=== PATIENT | female | born 1940 | race Caucasian/White ===

== ENCOUNTER 2018-07-10 10:35 | Emergency (ER) | payer OTHER ==
[2018-07-10] MEDS ORDERED: LIDOCAINE VISCOUS 2% SOLN 15 ML UDC ONE (12:00)
--- NOTE | 2018-07-10 12:14 | ER ---
Nurse's Notes [facility] Name: Liz Padilla Age: 78 yrs Sex: Female : 1940 Arrival Date: 07/10/2018 Time: 10:40 Bed 10 Private MD: Jason Fields Diagnosis: Laceration without foreign body of scalp Presentation: 07/10 10:55 Presenting complaint: Patient states: i just had cataract surgery, supposed to close my hj eyes on the shower, i hit my head underneath he shower and had a cut on it; happened around 8:30 am today; denies LOC; reports taking aspirin;. Transition of care: patient was not received from another setting of care. Complicating Factors: There are no complicating factors for this patient. Onset of symptoms was July 10, 2018. Risk Assessment: Do you want to hurt yourself or someone else? Patient reports no desire to harm self or others. Initial Sepsis Screen: Does the patient meet any 2 criteria? No. Patient's initial sepsis screen is negative. Does the patient have a suspected source of infection? No. Patient's initial sepsis screen is negative. Care prior to arrival: None. 10:55 Method Of Arrival: Ambulatory hj 10:55 Acuity: NOE 4 hj Triage Assessment: 10:58 General: Appears in no apparent distress. uncomfortable, Behavior is calm, cooperative, hj appropriate for age. Pain: Complains of pain in head Pain currently is 1 out of 10 on a pain scale. Injury Description: Laceration. 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 - Social history:: Smoking status: Patient/guardian denies using tobacco, Patient/guardian denies using alcohol. - Ebola Screening: : Patient negative for fever greater than or equal to 101.5 degrees Fahrenheit, and additional compatible Ebola Virus Disease symptoms Patient denies exposure to infectious person Patient denies travel to an Ebola-affected area in the 21 days before illness onset. Screenin:58 Abuse screen: Denies threats or abuse. Denies injuries from another. Nutritional hj screening: No deficits noted. Tuberculosis screening: No symptoms or risk factors identified. Fall Risk None identified. Assessment: 10:58 Injury Description: Laceration is clean, 0.5 to 2.5 cm long. hj 10:58 Musculoskeletal: No signs and/or symptoms reported regarding the musculoskeletal system.hj 11:40 General: Appears in no apparent distress. comfortable, Behavior is calm, cooperative, ss Denies fever, feeling ill, fatigue, chills. Pain: Complains of pain in top of head Pain currently is 1 out of 10 on a pain scale. Quality of pain is described as burning, tender, Is continuous. Neuro: Level of Consciousness is awake, alert, obeys commands, Oriented to person, place, time, situation. Respiratory: Airway is patent Respiratory effort is even, unlabored, Respiratory pattern is regular, symmetrical. EENT: Oral mucosa is moist. Throat is clear. Derm: Skin is intact, is healthy with good turgor, Skin is dry, Skin is pink, warm \T\ dry. normal. Injury Description: Laceration sustained to top of head is clean, 0.5 to 2.5 cm long, was sustained 30-60 minutes ago. is bleeding no active bleeding noted. Vital Signs: 10:59 BP 152 / 86; Pulse 72; Resp 18; Temp 98.0(O); Pulse Ox 100% on R/A; Weight 68.04 kg; hj Height 5 ft. 2 in. (157.48 cm); Pain 1/10; 10:59 Body Mass Index 27.44 (68.04 kg, 157.48 cm) ED Course: 10:40 Patient arrived in ED. mr 10:40 Jason Fields MD is Private Physician. mr 10:57 Triage completed. hj 10:58 Arm band placed on right wrist. hj 10:59 Patient has correct armband on for positive identification. Bed in low position. Call light in reach. Side rails up X 1. 11:38 [facility]C [facility] kb 11:38 Jerry Vera MD is Attending Physician. kb 11:53 Smirch, Charis, RN is Primary Nurse. ss 12:38 Assist provider with laceration repair that was 2.5 cm. or less using shlomo. Set up ss tray. Performed by Kaylah JOHNSON Dressed with Neosporin, Patient tolerated well. Patient did not have IV access during this emergency room visit. Administered Medications: 11:53 Drug: Viscous Lidocaine Liquid (4 %) 5 ml Route: Mucous Membrane; ss Outcome: 12:13 Discharge ordered by . kb 12:38 Discharged to home ambulatory. ss 12:38 Condition: good 12:38 Discharge instructions given to patient, Instructed on discharge instructions, follow up and referral plans. medication usage, wound care, Demonstrated understanding of instructions, follow-up care, wound care. 12:42 Patient left the ED. Signatures: Kaylah Martinez FNP-C FNP-Dexter Dayan Aleman Charis Ramirez, RN RN Lexa Manrique RN RN hj Corrections: (The following items were deleted from the chart) 11:02 10:59 Pulse 72bpm; Resp 18bpm; Pulse Ox 100% RA; Temp 98.0F Oral; 68.04 kg; Height 5 hj ft. 2 in.; BMI: 27.4; Pain 1/10; hj 11:03 10:59 Pulse 72bpm; Resp 18bpm; Pulse Ox 100% RA; Temp 98.0F Oral; 68.04 kg; Height 5 hj ft. 2 in.; BMI: 27.4; Pain 1/10; hj
--- NOTE | 2018-07-10 12:14 | EDPHYS ---
Physician Documentation [facility] Name: Liz Padilla Age: 78 yrs Sex: Female : 1940 Arrival Date: 07/10/2018 Time: 10:40 Bed 10 Private MD: Jason Fields ED Physician Jerry Vera HPI: 07/10 12:12 This 78 yrs old Female presents to ER via Ambulatory with complaints of kb Laceration To Head. 12:12 The patient has a laceration related to: hit head on shower handle occurred at home, kb and there are no complicating factors. The injury was accidental. The laceration(s) is(are) located on the top of head. Onset: The symptoms/episode began/occurred just prior to arrival. Associated signs and symptoms: The patient has no apparent associated signs or symptoms. The patient has not experienced similar symptoms in the past. The patient has not recently seen a physician. 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 - Social history:: Smoking status: Patient/guardian denies using tobacco, Patient/guardian denies using alcohol. - Ebola Screening: : Patient negative for fever greater than or equal to 101.5 degrees Fahrenheit, and additional compatible Ebola Virus Disease symptoms Patient denies exposure to infectious person Patient denies travel to an Ebola-affected area in the 21 days before illness onset. ROS: 12:11 Constitutional: Negative for fever, chills, and weight loss, Cardiovascular: Negative kb for chest pain, palpitations, and edema, Respiratory: Negative for shortness of breath, cough, wheezing, and pleuritic chest pain, Abdomen/GI: Negative for abdominal pain, nausea, vomiting, diarrhea, and constipation, MS/Extremity: Negative for injury and deformity, Neuro: Negative for headache, weakness, numbness, tingling, and seizure. 12:11 Skin: Positive for laceration(s), of the top of head. Exam: 12:11 Constitutional: This is a well developed, well nourished patient who is awake, alert, kb and in no acute distress. Head/Face: Normocephalic, atraumatic. Chest/axilla: Normal chest wall appearance and motion. Nontender with no deformity. No lesions are appreciated. Cardiovascular: Regular rate and rhythm with a normal S1 and S2. No gallops, murmurs, or rubs. Normal PMI, no JVD. No pulse deficits. Respiratory: Lungs have equal breath sounds bilaterally, clear to auscultation and percussion. No rales, rhonchi or wheezes noted. No increased work of breathing, no retractions or nasal flaring. Abdomen/GI: Soft, non-tender, with normal bowel sounds. No distension or tympany. No guarding or rebound. No evidence of tenderness throughout. MS/ Extremity: Pulses equal, no cyanosis. Neurovascular intact. Full, normal range of motion. Neuro: Awake and alert, GCS 15, oriented to person, place, time, and situation. Cranial nerves II-XII grossly intact. Motor strength 5/5 in all extremities. Sensory grossly intact. Cerebellar exam normal. Normal gait. 12:11 Skin: injury, laceration(s), the wound is approximately 2.5 cm(s), of the top of head, that can be described as clean, no foreign body, linear, without bleeding. Vital Signs: 10:59 BP 152 / 86; Pulse 72; Resp 18; Temp 98.0(O); Pulse Ox 100% on R/A; Weight 68.04 kg; hj Height 5 ft. 2 in. (157.48 cm); Pain 1/10; 10:59 Body Mass Index 27.44 (68.04 kg, 157.48 cm) hj Laceration: 12:11 Wound Repair of 2.5cm ( 1.0in ) subcutaneous laceration to top of head. Linear shaped.. kb Distal neuro/vascular/tendon intact. Anesthesia: Topical anesthetic administered with 1% lidocaine. Wound prep: Moderate cleansing with hibiclenz by nurse, Wound irrigation with saline by nurse. Skin closed with 3 Riccardo using staple gun. Dressed with Neosporin. Patient tolerated well. MDM: 11:38 Patient medically screened. kb 12:12 Data reviewed: vital signs, nurses notes. Data interpreted: Pulse oximetry: on room air kb is 100 %. Interpretation: normal. Counseling: I had a detailed discussion with the patient and/or guardian regarding: the historical points, exam findings, and any diagnostic results supporting the discharge/admit diagnosis, the need for outpatient follow up, a family practitioner, to return to the emergency department if symptoms worsen or persist or if there are any questions or concerns that arise at home. 07/10 11:48 Order name: Dressing - Wound; Complete Time: 12:07 kb 07/10 11:48 Order name: Gloves, Sterile; Complete Time: 12:07 kb 07/10 11:48 Order name: Setup Suture Tray; Complete Time: 12:07 kb Administered Medications: 11:53 Drug: Viscous Lidocaine Liquid (4 %) 5 ml Route: Mucous Membrane; ss Disposition: 07/11 10:19 Co-signature as Attending Physician, Jerry Vera MD I agree with the assessment and kylah plan of care. Disposition: 07/10/18 12:13 Discharged to Home. Impression: Laceration without foreign body of scalp. - Condition is Stable. - Discharge Instructions: Laceration Care, Adult, [id number], Head Injury, Adult, [id number]. - Medication Reconciliation Form, Thank You Letter, Antibiotic Education, Prescription Opioid Use form. - Follow up: Emergency Department; When: As needed; Reason: Worsening of condition. Follow up: Private Physician; When: 2 - 3 days; Reason: Recheck today's complaints, Continuance of care, Re-evaluation by your physician. Signatures: Kaylah Martinez, TIANNA-C TIANNA-Jerry Loya MD MD cha Smirch, Shelby, RN RN ss Joaquin, Henry, RN RN Corrections: (The following items were deleted from the chart) 07/10 12:42 12:13 07/10/2018 12:13 Discharged to Home. Impression: Laceration without foreign body ss of scalp. Condition is Stable. Forms are Medication Reconciliation Form, Thank You Letter, Antibiotic Education, Prescription Opioid Use. Follow up: Emergency Department; When: As needed; Reason: Worsening of condition. Follow up: Private Physician; When: 2 - 3 days; Reason: Recheck today's complaints, Continuance of care, Re-evaluation by your physician. kb
== END 2018-07-10 12:42 | disposition home or self-care (01) ==
LOC: ER 10:35
PROC: 0JQ00ZZ Repair Scalp Subcutaneous Tissue and Fascia, Open Approach (ICD-10-PCS; principal; 2018-07-10)
DX: S01.01XA Laceration without foreign body of scalp, initial encounter (principal); I10 Essential (primary) hypertension; K21.9 Gastro-esophageal reflux disease without esophagitis; W26.8XXA Contact with other sharp object(s), not elsewhere classified, initial encounter; Y93.89 Activity, other specified; Y92.002 Bathroom of unspecified non-institutional (private) residence as the place of occurrence of the external cause; Z88.6 Allergy status to analgesic agent; Z91.09 Other allergy status, other than to drugs and biological substances
CPT/HCPCS: 99283

== ENCOUNTER 2022-05-19 18:58 | Emergency (ER) | payer OTHER ==
--- NOTE | 2022-05-19 20:25 | EDPHYS ---
Physician Documentation [facility] Name: Liz Padilla Age: 82 yrs Sex: Female : 1940 Arrival Date: 05/19/2022 Time: 19:01 Bed 2 Private MD: Jason Fields ED Physician Jimi Bhatt HPI: 05/19 20:15 This 82 yrs old Female presents to ER via Ambulatory with complaints of Insect Bite. cp 20:15 The patient or guardian reports possible insect bite. The complaints affect the dorsal cp aspect of distal phalanx of right middle finger. Context: The problem was sustained at home, resulted from possible insect bite. Onset: The symptoms/episode began/occurred noticed about 1730 today. Associated signs and symptoms: The patient has no apparent associated signs or symptoms. Historical: - Allergies: 20:08 CEFALEXIN; kd3 20:08 Codeine; kd3 20:08 iodine contrast; kd3 20:08 Vicodin; kd3 - Home Meds: 20:08 losartan 25 mg Oral tab 1 tab once daily [Active]; pantoprazole 40 mg Oral TbEC 1 tab kd3 once daily [Active]; Furosemide Oral [Active]; - PMHx: 20:08 GERD; Hypertension; kd3 - Immunization history:: Adult Immunizations up to date. - Social history:: Smoking status: Patient denies any tobacco usage or history of. ROS: 20:16 Constitutional: Negative for body aches, chills, fever, poor PO intake. cp 20:16 Respiratory: Negative for cough, shortness of breath, wheezing. 20:16 Abdomen/GI: Negative for abdominal pain, nausea, vomiting, and diarrhea. 20:16 Skin: Positive for of the dorsal aspect of distal phalanx of right middle finger, possible insect bite. Exam: 20:17 Constitutional: The patient appears in no acute distress, alert, awake, comfortable, cp non-toxic, well developed, well nourished. 20:17 Skin: mild area of redness and swelling noted dorsal side distal phalanx right middle finger w/o open wound, no drainage expressed, skin cool to touch. Vital Signs: 20:06 BP 196 / 89; Pulse 68; Resp 19; Temp 98(O); Pulse Ox 95% on R/A; Weight 70.31 kg; kd3 Height 5 ft. 2 in. (157.48 cm); Pain 2/10; 20:17 BP 164 / 81; Pulse 65; Resp 18 S; Pulse Ox 99% on R/A; as6 20:25 BP 159 / 80; Pulse 64; Resp 18 S; Pulse Ox 97% on R/A; as6 20:06 Body Mass Index 28.35 (70.31 kg, 157.48 cm) kd3 MDM: 20:03 Patient medically screened. cp 20:25 Data reviewed: vital signs, nurses notes. cp 20:25 Differential diagnosis: closed fracture, contusion, cellulitis, insect bite, abscess. cp Test considered but Not performed: X-ray: hand. Care significantly affected by the following chronic conditions: Hypertension. Counseling: I had a detailed discussion with the patient and/or guardian regarding: the historical points, exam findings, and any diagnostic results supporting the discharge/admit diagnosis, to return to the emergency department if symptoms worsen or persist or if there are any questions or concerns that arise at home. 05/19 20:12 Order name: Blood Pressure Recheck; Complete Time: 20:20 cp Administered Medications: No medications were administered Disposition Summary: 05/19/22 20:25 Discharge Ordered Location: Home cp Problem: new cp Symptoms: are unchanged cp Condition: Stable cp Diagnosis - Encounter for examination and observation for unspecified reason - possible insect cp bite right finger Followup: cp - With: Private Physician - When: 48 Hours - Reason: Worsening of condition Discharge Instructions: - Discharge Summary Sheet cp - Insect Bite, Adult cp Forms: - Medication Reconciliation Form cp - Thank You Letter cp - Antibiotic Education cp - Prescription Opioid Use cp Signatures: Jerry Zimmer PA PA cp Cindy Blue, RN RN kd3 Corrections: (The following items were deleted from the chart) 20:20 20:17 Skin: mild area of redness and swelling noted dorsal side distal phalanx right cp middle finger w/o open wound, no drainage expressed. cp
--- NOTE | 2022-05-19 20:25 | ER ---
Nurse's Notes [facility] Name: Liz Padilla Age: 82 yrs Sex: Female : 1940 Arrival Date: 05/19/2022 Time: 19:01 Bed 2 Private MD: Jason Fields Diagnosis: Encounter for examination and observation for unspecified reason-possible insect bite right finger Presentation: 05/19 20:06 Chief complaint: Patient states: I feel a little silly but i have a little red miranda on kd3 my right middle finger. I guess its a bite but im not sure. It is a bit uncomfortable so i thought i would come get it checked. Coronavirus screen: Vaccine status: Patient reports receiving the 2nd dose of the covid vaccine. pfizer Patient reports receiving the 1st dose of the Covid vaccine. moderna. Ebola Screen: No symptoms or risks identified at this time. Initial Sepsis Screen: Does the patient meet any 2 criteria? No. Patient's initial sepsis screen is negative. Does the patient have a suspected source of infection? No. Patient's initial sepsis screen is negative. Risk Assessment: Do you want to hurt yourself or someone else? Patient reports no desire to harm self or others. Onset of symptoms was May 19, 2022. 20:06 Method Of Arrival: Ambulatory kd3 20:06 Acuity: NOE 4 kd3 Triage Assessment: 20:08 Bite description: bite sustained to dorsal aspect of distal phalanx of right middle kd3 finger by an unknown animal, animal information: vaccination(s) is not applicable. General: Appears in no apparent distress. Behavior is calm, cooperative. Pain: Complains of pain in dorsal aspect of distal phalanx of right middle finger and right middle fingernail. Neuro: Level of Consciousness is awake, alert, obeys commands, Oriented to person, place, time, situation. Cardiovascular: Patient's skin is warm and dry. Respiratory: Airway is patent Trachea midline Respiratory effort is even, unlabored, Respiratory pattern is regular, symmetrical. Historical: - Allergies: 20:08 CEFALEXIN; kd3 20:08 Codeine; kd3 20:08 iodine contrast; kd3 20:08 Vicodin; kd3 - Home Meds: 20:08 losartan 25 mg Oral tab 1 tab once daily [Active]; pantoprazole 40 mg Oral TbEC 1 tab kd3 once daily [Active]; Furosemide Oral [Active]; - PMHx: 20:08 GERD; Hypertension; kd3 - Immunization history:: Adult Immunizations up to date. - Social history:: Smoking status: Patient denies any tobacco usage or history of. Screenin:18 [facility] ED Fall Risk Assessment (Adult) Score/Fall Risk Level 0 - 2 = Low Risk. Abuse as6 screen: Denies threats or abuse. Denies injuries from another. Nutritional screening: No deficits noted. Tuberculosis screening: No symptoms or risk factors identified. Assessment: 20:30 General: see triage assessment . as6 Vital Signs: 20:06 BP 196 / 89; Pulse 68; Resp 19; Temp 98(O); Pulse Ox 95% on R/A; Weight 70.31 kg; kd3 Height 5 ft. 2 in. (157.48 cm); Pain 2/10; 20:17 BP 164 / 81; Pulse 65; Resp 18 S; Pulse Ox 99% on R/A; as6 20:25 BP 159 / 80; Pulse 64; Resp 18 S; Pulse Ox 97% on R/A; as6 20:06 Body Mass Index 28.35 (70.31 kg, 157.48 cm) kd3 ED Course: 19:01 Patient arrived in ED. am2 19:01 Jason Fields MD is Private Physician. am2 19:18 Jerry Zimmer PA is PHCP. cp 19:18 Jimi Bhatt MD is Attending Physician. cp 20:06 Manjinder Bonilla, FUNMI is Primary Nurse. as6 20:08 Triage completed. kd3 20:08 Arm band placed on. kd3 20:18 Bed in low position. Call light in reach. Side rails up X 1. as6 20:30 No provider procedures requiring assistance completed. Patient did not have IV access as6 during this emergency room visit. Administered Medications: No medications were administered Medication: 20:30 VIS not applicable for this client. as6 Outcome: 20:25 Discharge ordered by . cp 20:30 Discharged to home ambulatory. as6 20:30 Condition: stable 20:30 Discharge instructions given to patient, Instructed on discharge instructions, follow up and referral plans. Demonstrated understanding of instructions, follow-up care. 20:30 Patient left the ED. as6 Signatures: Jerry Zimmer PA PA cp Moreno, Amanda am2 Manjinder Bonilla, RN RN as6 Cindy Blue, RN RN kd3
[2022-05-19 20:35] VITALS: TEMP 98
[2022-05-19 20:37] VITALS: BP 159/80; O2SAT 97
== END 2022-05-19 20:30 | disposition home or self-care (01) ==
LOC: ER 18:58
DX: S60.462A Insect bite (nonvenomous) of right middle finger, initial encounter (principal); Z88.5 Allergy status to narcotic agent; Z88.8 Allergy status to other drugs, medicaments and biological substances; Z91.041 Radiographic dye allergy status